=== PATIENT | male | born 1965 | race African-American/Black ===

== ENCOUNTER 2017-11-19 13:12 | Emergency (ER) | payer MEDICAID ==
[~2017-11-19] VITALS: Ht 182.9 cm; Wt 91.0 kg
[2017-11-19] MEDS ORDERED: LISI-604 PO (13:29)
[2017-11-19] MEDS ORDERED: IBUPROFEN 600MG TABLET PO ONE (15:45)
[2017-11-19 18:00] VITALS: BP 126/58
== END 2017-11-19 18:17 | disposition home or self-care (01) ==
LOC: ER 13:12
DX: M79.662 Pain in left lower leg (principal); I10 Essential (primary) hypertension; F17.200 Nicotine dependence, unspecified, uncomplicated
CPT/HCPCS: 93971; 99284